=== PATIENT | female | born 1975 | race Caucasian/White ===

== ENCOUNTER 2019-03-19 05:49 | Observation (INO) | payer SELFPAY ==
[2019-03-19] MEDS ORDERED: Sodium Chloride 0.9% 2.5 ML Syringe FLUSH PRN (05:53)
[2019-03-19] MEDS ORDERED: Sodium Chloride 0.9% 10 ML Syringe FLUSH PRN (05:53)
[2019-03-19] MEDS ORDERED: Sodium Chloride 0.9% 1,000 ML IV ONE ×2 (05:58→07:50)
--- NOTE | 2019-03-19 06:02 | EDM.PDOC ---
ED HPI GENERAL MEDICAL PROBLEM - General Chief Complaint: Cardiovascular Problem Stated Complaint: PT HEART IS RACING Time Seen by Provider: 03/19/19 05:53 - History of Present Illness INITIAL COMMENTS - FREE TEXT/NARRATIVE: HISTORY AND PHYSICAL: History of present illness: The patient is a 43-year-old female who presents with onset of palpitations and tachycardia that occurred while she was at work and feeling lightheaded like she might pass out. She works at [employer] and she says that the staff took her pulse and it was 120s and her blood pressure was 150/ 80. Patient said she had a normal day yesterday and slept fine and got up and get ready for work and went into work when the symptoms started. She had no recent illness such as fever chills chest pain or shortness of breath no URI symptoms no abdominal pain nausea vomiting or diarrhea. The patient denies and has a history of a thyroid nodule as well as hypothyroidism in the past. Currently in the ED she says that her heart is not racing she's not having any pain as long as she is laying flat but when she gets up and moves around she feels like her heart increases in rate and she feels lightheaded. She did not pass out today and has no head neck or back pain and she never had any chest pain or shortness of breath with this. She has no focal weakness numbness or tingling changes in her extremities. The patient tells me she was going to schedule an appointment with her clinic provider for several months of changes in her hair and hair loss as well as some weight loss and overall generalized fatigue and she thought this might be her thyroid. Review of systems: As per history of present illness and below otherwise all systems reviewed and negative. Past medical history: As per history of present illness and as reviewed below otherwise noncontributory. Surgical history: As per history of present illness and as reviewed below otherwise noncontributory. Social history: No reported history of drug or alcohol abuse. Family history: As per history of present illness and as reviewed below otherwise noncontributory. Physical exam: General: Well-developed well-nourished female who is nontoxic and vital signs are noted by me. My evaluation her heart rate is in the 80s. HEENT: Atraumatic, normocephalic, pupils reactive, negative for conjunctival pallor or scleral icterus, mucous membranes moist, throat clear, neck supple, nontender, trachea midline. Dramatically or cervical adenopathy Lungs: Clear to auscultation, breath sounds equal bilaterally, chest nontender. Heart: S1S2, regular, rate and rhythm no overt murmurs negative for clicks, rubs , or JVD. Abdomen: Soft, nondistended, nontender. Negative for masses or hepatosplenomegaly. Negative for costovertebral tenderness. Pelvis: Stable nontender. Genitourinary: Deferred. Rectal: Deferred. Extremities: Atraumatic, negative for cords or calf pain. Neurovascular unremarkable. No pedal edema or leg asymmetry Neuro: Awake, alert, oriented. Cranial nerves II through XII unremarkable. Cerebellum unremarkable. Motor and sensory unremarkable throughout. Exam nonfocal. Diagnostics: EKG chest x-ray CBC CMP troponin TSH orthostatic vitals UCG UA with reflex Therapeutics: IV O2 monitor IV fluids potassium po and IV piggyback I discussed with the patient how she is feeling as we are currently waiting the remainder of her testing results. She says she still feels lightheaded and that if she gets up she feels like she's going to pass out. She is aware of her elevated blood pressure and says that she has not had a check for the last one year. She is aware that it is unclear if this is a new or chronic change and she is also aware of her potassium of 2.6. She has expressed that she feels uncomfortable with going home and that her symptoms are not significantly improving. I will discuss this case with Dr. Toney [id number]: Case was discussed with Dr. Toney who was aware of the potassium supplementation and will address her blood pressure when he evaluates her this morning. The patient is agreeable for admission and he has agreed to admit her as well. Impression: Palpitations with lightheadedness/near syncopal, new hypertension, hypokalemia Definitive disposition and diagnosis as appropriate pending reevaluation and review of above. chest Pain Score (Numeric/FACES): 6 - Related Data Allergies Allergy/AdvReac Type Severity Reaction Status Date / Time oxycodone Allergy Swelling Verified 03/19/19 06:01 Home Meds: Home Meds . [No Known Home Meds] 03/19/19 [History] ED ROS GENERAL - Review of Systems Review Of Systems: ROS reveals no pertinent complaints other than HPI. ED EXAM, GENERAL - Physical Exam Exam: See Below (See dictation) Course - Vital Signs Last Recorded V/S: Last Vital Signs Temp 36.2 C 03/19/19 05:49 Pulse 71 03/19/19 06:34 Resp 18 03/19/19 06:34 BP 162/105 H 03/19/19 06:34 Pulse Ox 95 03/19/19 06:34 Orthostatic Blood Pressure [ 155/114 Standing] Orthostatic Blood Pressure [ 173/110 Sitting] Orthostatic Blood Pressure [ 163/104 Supine] - Orders/Labs/Meds Orders: Active Orders 24 hr Category Date Time Status Patient Status [ADT] Stat ADT 03/19/19 06:57 Ordered Cardiac Monitoring [RC] . DIRECTED Care 03/19/19 05:54 Active EKG Documentation Completion [RC] STAT Care 03/19/19 05:54 Active Orthostatic Vital Signs [RC] ASDIRECTED Care 03/19/19 05:58 Active Oxygen Therapy, ED [RC] ASDIRECTED Care 03/19/19 05:53 Active Pulse Oximetry [RC] ASDIRECTED Care 03/19/19 05:54 Active Potassium Chloride Riders [KCL 20 MEQ in Water 50 ML] Med 03/19/19 06:40 Active 20 meq Premix Bag 1 bag IV ONETIME Sodium Chloride 0.9% [Saline Flush] Med 03/19/19 05:53 Active 10 ml FLUSH ASDIRECTED PRN Sodium Chloride 0.9% [Saline Flush] Med 03/19/19 05:53 Active 2.5 ml FLUSH ASDIRECTED PRN Saline Lock Insert [OM.PC] Stat Oth 03/19/19 05:53 Ordered Medication Orders Potassium Chloride 20 meq/ (Premix) 50 mls @ 25 mls/hr IV ONETIME ONE Stop: 03/19/19 08:39 Last Admin: 03/19/19 06:53 Dose: 25 mls/hr Sodium Chloride (Saline Flush) 10 ml FLUSH ASDIRECTED PRN PRN Reason: Keep Vein Open Sodium Chloride (Saline Flush) 2.5 ml FLUSH ASDIRECTED PRN PRN Reason: Keep Vein Open Labs: Laboratory Tests 03/19/19 03/19/19 03/19/19 Range/Units 05:55 05:55 05:55 WBC 8.09 (4.0-11.0) K/uL RBC 4.78 (4.30-5.90) M/uL Hgb 11.4 L (12.0-16.0) g/dL Hct 37.9 (36.0-46.0) % MCV 79.3 L (80.0-98.0) fL MCH 23.8 L (27.0-32.0) pg MCHC 30.1 L (31.0-37.0) g/dL RDW Std Deviation 49.9 (28.0-62.0) fl RDW Coeff of Jania 17 H (11.0-15.0) % Plt Count 445 H (150-400) K/uL MPV 9.10 (7.40-12.00) fL Neut % (Auto) 47.3 L (48.0-80.0) % Lymph % (Auto) 36.0 (16.0-40.0) % [place] % (Auto) 12.7 (0.0-15.0) % Eos % (Auto) 3.1 (0.0-7.0) % Baso % (Auto) 0.9 (0.0-1.5) % Neut # (Auto) 3.8 (1.4-5.7) K/uL Lymph # (Auto) 2.9 H (0.6-2.4) K/uL [place] # (Auto) 1.0 H (0.0-0.8) K/uL Eos # (Auto) 0.3 (0.0-0.7) K/uL Baso # (Auto) 0.1 (0.0-0.1) K/uL Nucleated RBC % 0.0 /100WBC Nucleated RBCs # 0 K/uL Sodium 141 (136-145) mmol/L Potassium 2.6 L (3.5-5.1) mmol/L Chloride 103 (98-107) mmol/L Carbon Dioxide 25.4 (21.0-32.0) mmol/L BUN 14 (7.0-18.0) mg/dL Creatinine 1.3 H (0.6-1.0) mg/dL Est Cr Clr Drug Dosing 51.70 mL/min Estimated GFR (MDRD) 44.5 ml/min Glucose 100 (74-106) mg/dL Calcium 8.5 (8.5-10.1) mg/dL Magnesium 2.1 (1.8-2.4) mg/dL Total Bilirubin 0.2 (0.2-1.0) mg/dL AST 22 (15-37) IU/L ALT 25 (14-63) IU/L Alkaline Phosphatase 54 (46-116) U/L Troponin I < 0.050 (0.000-0.056) ng/mL Total Protein 7.5 (6.4-8.2) g/dL Albumin 3.6 (3.4-5.0) g/dL Globulin 3.9 (2.6-4.0) g/dL Albumin/Globulin Ratio 0.9 (0.9-1.6) TSH 3rd Generation 3.31 (0.36-3.74) uIU/mL Urine Color Urine Appearance Urine pH (5.0-8.0) Ur Specific [place] (1.001-1.035) Urine Protein (NEGATIVE) mg/dL Urine Glucose (UA) (NEGATIVE) mg/dL Urine Ketones (NEGATIVE) mg/dL Urine Occult Blood (NEGATIVE) Urine Nitrite (NEGATIVE) Urine Bilirubin (NEGATIVE) Urine Urobilinogen (<2.0) EU/dL Ur Leukocyte Esterase (NEGATIVE) Urine HCG, Qual (NEGATIVE) 03/19/19 03/19/19 Range/Units 06:25 06:25 WBC (4.0-11.0) K/uL RBC (4.30-5.90) M/uL Hgb (12.0-16.0) g/dL Hct (36.0-46.0) % MCV (80.0-98.0) fL MCH (27.0-32.0) pg MCHC (31.0-37.0) g/dL RDW Std Deviation (28.0-62.0) fl RDW Coeff of Jania (11.0-15.0) % Plt Count (150-400) K/uL MPV (7.40-12.00) fL Neut % (Auto) (48.0-80.0) % Lymph % (Auto) (16.0-40.0) % [place] % (Auto) (0.0-15.0) % Eos % (Auto) (0.0-7.0) % Baso % (Auto) (0.0-1.5) % Neut # (Auto) (1.4-5.7) K/uL Lymph # (Auto) (0.6-2.4) K/uL [place] # (Auto) (0.0-0.8) K/uL Eos # (Auto) (0.0-0.7) K/uL Baso # (Auto) (0.0-0.1) K/uL Nucleated RBC % /100WBC Nucleated RBCs # K/uL Sodium (136-145) mmol/L Potassium (3.5-5.1) mmol/L Chloride (98-107) mmol/L Carbon Dioxide (21.0-32.0) mmol/L BUN (7.0-18.0) mg/dL Creatinine (0.6-1.0) mg/dL Est Cr Clr Drug Dosing mL/min Estimated GFR (MDRD) ml/min Glucose (74-106) mg/dL Calcium (8.5-10.1) mg/dL Magnesium (1.8-2.4) mg/dL Total Bilirubin (0.2-1.0) mg/dL AST (15-37) IU/L ALT (14-63) IU/L Alkaline Phosphatase (46-116) U/L Troponin I (0.000-0.056) ng/mL Total Protein (6.4-8.2) g/dL Albumin (3.4-5.0) g/dL Globulin (2.6-4.0) g/dL Albumin/Globulin Ratio (0.9-1.6) TSH 3rd Generation (0.36-3.74) uIU/mL Urine Color YELLOW Urine Appearance CLEAR Urine pH 6.0 (5.0-8.0) Ur Specific [place] <= 1.005 (1.001-1.035) Urine Protein NEGATIVE (NEGATIVE) mg/dL Urine Glucose (UA) NEGATIVE (NEGATIVE) mg/dL Urine Ketones NEGATIVE (NEGATIVE) mg/dL Urine Occult Blood NEGATIVE (NEGATIVE) Urine Nitrite NEGATIVE (NEGATIVE) Urine Bilirubin NEGATIVE (NEGATIVE) Urine Urobilinogen 0.2 (<2.0) EU/dL Ur Leukocyte Esterase NEGATIVE (NEGATIVE) Urine HCG, Qual NEGATIVE (NEGATIVE) Meds: Medications Generic Name Dose Route Start Last Admin Trade Name Freq PRN Reason Stop Dose Admin Potassium Chloride 20 meq/ 50 mls @ 25 mls/hr 03/19/19 06:40 03/19/19 06:53 Premix IV 03/19/19 08:39 25 mls/hr ONETIME ONE Administration Sodium Chloride 10 ml 03/19/19 05:53 Saline Flush FLUSH ASDIRECTED PRN Keep Vein Open Sodium Chloride 2.5 ml 03/19/19 05:53 Saline Flush FLUSH ASDIRECTED PRN Keep Vein Open Discontinued Medications Generic Name Dose Route Start Last Admin Trade Name Durga PRN Reason Stop Dose Admin Sodium Chloride 1,000 mls @ 999 mls/hr 03/19/19 05:58 03/19/19 06:29 Normal Saline IV 03/19/19 06:58 999 mls/hr STAT ONE Administration Potassium Chloride 40 meq 03/19/19 06:37 03/19/19 06:44 Klor-Con M20 PO 03/19/19 06:38 40 meq ONETIME ONE Administration Departure - Departure Time of Disposition: 06:58 Disposition: Refer to Observation Condition: Good Clinical Impression: Palpitations, Lightheadedness Hypertension Qualifiers: Hypertension type: unspecified Qualified Code(s): I10 - Essential (primary) hypertension Referrals: PCP,None [Primary Care Provider] - Forms: ED Department Discharge Additional Instructions: The following information is given to patients seen in the emergency department who are being discharged to home. This information is to outline your options for follow-up care. We provide all patients seen in our emergency department with a follow-up referral. The need for follow-up, as well as the timing and circumstances, are variable depending upon the specifics of your emergency department visit. If you don't have a primary care physician on staff, we will provide you with a referral. We always advise you to contact your personal physician following an emergency department visit to inform them of the circumstance of the visit and for follow-up with them and/or the need for any referrals to a consulting specialist. The emergency department will also refer you to a specialist when appropriate. This referral assures that you have the opportunity for followup care with a specialist. All of these measure are taken in an effort to provide you with optimal care, which includes your followup. Under all circumstances we always encourage you to contact your private physician who remains a resource for coordinating your care. When calling for followup care, please make the office aware that this follow-up is from your recent emergency room visit. If for any reason you are refused follow-up, please contact the [facility] emergency department at and ask to speak to the emergency department charge nurse. [facility]- Internal Medicine and Family [address] [address] Push hydration and reduce caffeinated products. Please call and schedule a follow-up appointment in our clinic for further care and evaluation and return to ER as needed and as discussed all position changing more slowly so as to avoid lightheadedness - My Orders Last 24 Hours: My Active Orders 03/19/19 05:53 Oxygen Therapy, ED [RC] ASDIRECTED Sodium Chloride 0.9% [Saline Flush] 10 ml FLUSH ASDIRECTED PRN Sodium Chloride 0.9% [Saline Flush] 2.5 ml FLUSH ASDIRECTED PRN Saline Lock Insert [OM.PC] Stat 03/19/19 05:54 Cardiac Monitoring [RC] . DIRECTED EKG Documentation Completion [RC] STAT Pulse Oximetry [RC] ASDIRECTED 03/19/19 05:58 Orthostatic Vital Signs [RC] ASDIRECTED 03/19/19 06:40 Potassium Chloride Riders [KCL 20 MEQ in Water 50 ML] 20 meq Premix Bag 1 bag IV ONETIME 03/19/19 06:57 Patient Status [ADT] Stat - Assessment/Plan Last 24 Hours: My Active Orders 03/19/19 05:53 Oxygen Therapy, ED [RC] ASDIRECTED Sodium Chloride 0.9% [Saline Flush] 10 ml FLUSH ASDIRECTED PRN Sodium Chloride 0.9% [Saline Flush] 2.5 ml FLUSH ASDIRECTED PRN Saline Lock Insert [OM.PC] Stat 03/19/19 05:54 Cardiac Monitoring [RC] . DIRECTED EKG Documentation Completion [RC] STAT Pulse Oximetry [RC] ASDIRECTED 03/19/19 05:58 Orthostatic Vital Signs [RC] ASDIRECTED 03/19/19 06:40 Potassium Chloride Riders [KCL 20 MEQ in Water 50 ML] 20 meq Premix Bag 1 bag IV ONETIME 03/19/19 06:57 Patient Status [ADT] Stat
[2019-03-19 06:33] LABS: CHLORIDE,CL 103 mmol/L (98-107); SODIUM,NA 141 mmol/L (136-145)
[2019-03-19] MEDS ORDERED: Potassium Chloride 20 MEQ Tab.ER PO ONE (06:37)
[2019-03-19] MEDS ORDERED: Potassium Chloride Riders 20 MEQ in Premix Bag 1 BAG IV ONE (06:40)
--- NOTE | 2019-03-19 06:43 | CR ---
HISTORY: Chest pain. Shortness of breath. TECHNIQUE: Frontal view the chest. COMPARISON: None. FINDINGS: Low lung volumes. No airspace consolidation. No pleural effusion or pneumothorax. Pulmonary vasculature and cardiomediastinal silhouette are within normal limits. IMPRESSION: No acute abnormality. Dictated by Matt Leroy MD @ Mar 19 2019 6:41AM Signed by Dr. Matt Leroy @ Mar 19 2019 6:42AM
[2019-03-19] MEDS ORDERED: Ondansetron 4 MG Tab.DIS PO PRN (08:05)
[2019-03-19] MEDS ORDERED: Acetaminophen 325 MG Tab PO PRN (08:05)
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
[2019-03-19 08:43] LABS: HEMOGLOBIN A1C 5.7 % (4.5-6.2)
[2019-03-19] MEDS: Lisinopril 10 MG Tab PO SCH (09:03)
--- NOTE | 2019-03-20 08:49 | PCM.DCSUM1 ---
Discharge Summary - Hospital Course Brief History: This 43 year old female with pmh of gastric bypass, sarcoidosis of the liver, hx surgical splenectomy presented to the ED this morning with complaints of palpitations, high blood pressure and not feeling well. 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 The blood pressure was elevated as well as the heart rate, which was 120. She started having some chest pain this morning getting ready for work. This pain was mid sternal and felt like her heart was pounding out of her chest. No shortness of breath or nausea. No radiation of the pain. She reports some activity makes it worse and at rest it is better. She reports she has not been feeling well for awhile and was planning on arranging doctor visit due to hair falling out and changes to her hair as well as generalized fatigue. She denies URI symptoms, no abdominal pain nausea or vomiting. No diarrhea and no diuretic use. She reports no other concerns. She denies history of DM but suffers from hypoglycemia secondary to weight loss surgery. She reports vaping and plans to stop. No alcohol or recreational drug use. She reports she has not been taking her Multivitamin like she should s/p gastric bypass. In the ED, no leukocytosis noted, hgb 11.4 , plt 445, K+2.6 Mg 2.1. BUN 12, Cr 1.3. TSH 3.31, troponin negative. EKG SR with no ST segment changes. Ua negative. BP on arrival was elevated 190/130, without medications this decreased to 160/90s. She reports history of high BPs, but never this high. She was treated with 40 MEQ KCL as well as 20 MEQ PO. She will be admitted observation for palpitations, HTN, and hypokalemia. Diagnosis: Stroke: No - Discharge Data Discharge Date: 03/20/19 Discharge Disposition: Home, Self-Care 01 Condition: Good - Discharge Diagnosis/Problem(s) (1) Chest pain SNOMED Code(s): 20952295 ICD Code: R07.9 - CHEST PAIN, UNSPECIFIED Status: Acute Current Visit: Yes (2) Hypokalemia SNOMED Code(s): 82329776 ICD Code: E87.6 - HYPOKALEMIA Status: Acute Current Visit: Yes (3) Hypertension SNOMED Code(s): 20499743 ICD Code: I10 - ESSENTIAL (PRIMARY) HYPERTENSION Status: Chronic Current Visit: Yes Qualifiers: Hypertension type: essential hypertension Qualified Code(s): I10 - Essential (primary) hypertension (4) Lightheadedness SNOMED Code(s): 304637736 ICD Code: R42 - DIZZINESS AND GIDDINESS Status: Chronic Current Visit: No (5) Palpitations SNOMED Code(s): 70462014 ICD Code: R00.2 - PALPITATIONS Status: Chronic Current Visit: No - Patient Instructions Diet: Heart Healthy Diet Activity: No Strenuous Activities Driving: Do Not Drive Showering/Bathing: May Shower Notify Provider of: Fever, Increased Pain, Swelling and Redness, Drainage, Nausea and/or Vomiting Other/Special Instructions: Plan for event monitor when respiratory care can place. - Discharge Plan *PRESCRIPTION DRUG MONITORING PROGRAM REVIEWED*: Not Applicable *COPY OF PRESCRIPTION DRUG MONITORING REPORT IN PATIENT CAROL: Not Applicable Prescriptions/Med Rec: Lisinopril [Prinivil] 10 mg PO DAILY #30 tablet Home Medications: Home Meds Lisinopril [Prinivil] 10 mg PO DAILY #30 tablet 03/20/19 [Rx] Oxygen Therapy Mode: Room Air Patient Handouts: Nonspecific Chest Pain, [id number], Lisinopril tablets Referrals: Leif Medina MD [Physician] - 04/04/19 9:30 am (Arrive 30 minutes early with insurance card and photo ID.) - Discharge Summary/Plan Comment DC Time >30 min.: No Discharge Summary/Plan Comment: Admitting Diagnoses: Hypertension Hypokalemia Palpitations Chest pain Discharge Diagnoses: Hypertension Other PMH: Hx gastric bypass Anxiety Mary was admitted and monitored for hypertension and chest pain. Troponins trended and returned all negative. Telemetry SR to SB no arrhythmias or ectopy. She was supplemented with Potassium and started on Lisinopril 10 mg. BP responded well and this morning 120/80s. She will be continued on Lisinopril, this morning potassium 4.2. Due to extreme hypertension and hypokalemia coming in, aldosterone and renin labwork were obtained to rule out hyperaldosteronism. She does have history of sarcoidosis of liver and had history of splenectomy due to this as well. These labs are send outs and are not available at discharge. She will follow up with PCP, Dr Medina with these labs. She will also be placed on a ZIO patch due to history of palpitations, this will be in place for 2 weeks with results to go to Dr Medina as well. She is feeling better today and eager for discharge today. She is to return to ED or clinic if concerns should arise. - General Info Date of Service: 03/20/19 Admission Dx/Problem (Free Text: Admission Diagnosis/Problem Admission Diagnosis/Problem Lightheadedness Subjective Update: No complaints this morning, she is feeling better. No chest pain. No palpitations. eager to go home today Functional Status: Reports: Pain Controlled, Tolerating Diet, Ambulating, Urinating - Review of Systems General: Reports: No Symptoms. Denies: Weakness, Fatigue HEENT: Reports: No Symptoms. Denies: Headaches, Sore Throat, Visual Changes Pulmonary: Reports: No Symptoms. Denies: Shortness of Breath Cardiovascular: Reports: No Symptoms. Denies: Chest Pain Gastrointestinal: Reports: No Symptoms. Denies: Abdominal Pain, Nausea, Vomiting Genitourinary: Reports: No Symptoms. Denies: Dysuria, Frequency, Burning Musculoskeletal: Reports: No Symptoms Skin: Reports: No Symptoms Neurological: Reports: No Symptoms Psychiatric: Reports: No Symptoms - Patient Data Vitals - Most Recent: Last Vital Signs Temp 97.4 F 03/20/19 03:40 Pulse 61 03/20/19 03:40 Resp 17 03/20/19 03:40 BP 132/65 03/20/19 03:40 Pulse Ox 97 03/20/19 03:40 Orthostatic Blood Pressure [ 155/114 Standing] Orthostatic Blood Pressure [ 173/110 Sitting] Orthostatic Blood Pressure [ 163/104 Supine] Weight - Most Recent: 77 kg I&O - Last 24 hours: Intake & Output 03/19/19 03/20/19 03/20/19 22:59 06:59 14:59 Intake Total 1190 520 Output Total 1350 850 Balance -160 -330 Lab Results - Last 24 hrs: Laboratory Results - last 24 hr 03/19/19 03/19/19 03/20/19 Range/Units 11:45 17:56 05:24 Sodium 141 (136-145) mmol/L Potassium 3.7 4.2 (3.5-5.1) mmol/L Chloride 108 H (98-107) mmol/L Carbon Dioxide 24.6 (21.0-32.0) mmol/L BUN 17 (7.0-18.0) mg/dL Creatinine 1.1 H (0.6-1.0) mg/dL Est Cr Clr Drug Dosing 61.10 mL/min Estimated GFR (MDRD) 54.0 ml/min Glucose 93 (74-106) mg/dL Calcium 8.3 L (8.5-10.1) mg/dL Troponin I < 0.050 < 0.050 (0.000-0.056) ng/mL Med Orders - Current: Current Medications Acetaminophen (Tylenol) 650 mg PO Q4H PRN PRN Reason: Pain (mild 1-3) Last Admin: 03/19/19 11:30 Dose: 650 mg Lisinopril (Prinivil) 10 mg PO DAILY GAURAV Last Admin: 03/19/19 09:03 Dose: 10 mg Ondansetron HCl (Zofran Odt) 4 mg PO Q4H PRN PRN Reason: nausea, able to take PO Sodium Chloride (Saline Flush) 10 ml FLUSH ASDIRECTED PRN PRN Reason: Keep Vein Open Sodium Chloride (Saline Flush) 2.5 ml FLUSH ASDIRECTED PRN PRN Reason: Keep Vein Open Discontinued Medications Sodium Chloride (Normal Saline) 1,000 mls @ 999 mls/hr IV STAT ONE Stop: 03/19/19 06:58 Last Admin: 03/19/19 06:29 Dose: 999 mls/hr Potassium Chloride 20 meq/ (Premix) 50 mls @ 25 mls/hr IV ONETIME ONE Stop: 03/19/19 08:39 Last Admin: 03/19/19 06:53 Dose: 25 mls/hr Sodium Chloride (Normal Saline) 1,000 mls @ 999 mls/hr IV .Bolus ONE Stop: 03/19/19 08:50 Last Admin: 03/19/19 07:52 Dose: 125 mls/hr Potassium Chloride (Klor-Con M20) 40 meq PO ONETIME ONE Stop: 03/19/19 06:38 Last Admin: 03/19/19 06:44 Dose: 40 meq - Exam General: Reports: Alert, Oriented, Cooperative Lungs: Reports: Clear to Auscultation, Normal Respiratory Effort Cardiovascular: Reports: Regular Rate, Regular Rhythm GI/Abdominal Exam: Normal Bowel Sounds, Soft, Non-Tender, Hepatomegaly Extremities: Normal Inspection, Normal Range of Motion, Non-Tender Neurological: Reports: No New Focal Deficit Psy/Mental Status: Reports: Alert, Normal Affect, Normal Mood
[2019-03-20] MEDS: Lisinopril 10 MG Tab PO SCH (09:01)
== END 2019-03-20 11:20 | disposition home or self-care (01) ==
LOC: MW.ED 05:49 → MW.MS 06:57
PROVIDERS: ADMIT Internal Medicine; ATTEND Internal Medicine
DX: I10 Essential (primary) hypertension (principal); E87.6 Hypokalemia; R00.2 Palpitations; R07.9 Chest pain, unspecified; F17.290 Nicotine dependence, other tobacco product, uncomplicated; Z88.5 Allergy status to narcotic agent
CPT/HCPCS: 0296T; 36415; 71045; 80048; 80053; 80061; 81003; 81025; 82088; 83036; 83735; 84132; 84244; 84443; 84484; 85025; 93005; 96365; 99285; A4217; A9270; G0378; J3480; J7040

== ENCOUNTER 2019-08-25 05:41 | Emergency (ER) | payer BC ==
[2019-08-25] MEDS ORDERED: Sodium Chloride 0.9% 1,000 ML IV ONE (05:55)
[2019-08-25 06:24] LABS: BLOOD UREA NITROGEN,BUN 20 mg/dL (7.0-18.0); CARBON DIOXIDE,CO2 24.1 mmol/L (21.0-32.0); CHLORIDE,CL 103 mmol/L (98-107); GLUCOSE RANDOM 76 mg/dL (74-106); POTASSIUM,K 3.8 mmol/L (3.5-5.1); SODIUM,NA 137 mmol/L (136-145)
--- NOTE | 2019-08-25 06:38 | CR ---
INDICATION: Dizziness TECHNIQUE: Chest radiograph 1 view COMPARISON: 03/19/19 FINDINGS: Moderate degradation of image quality noted due to quantum mottle. Mediastinum: The mediastinum is normal in appearance. The heart silhouette is normal in size and morphology. Lung: Both lungs are unremarkable in appearance. No sign of pleural effusion seen. No pneumothorax is identified. Bone and Soft tissue: Unremarkable for age. IMPRESSION: 1. No acute cardiopulmonary disease is seen. Dictated by: Deniz Casiano MD @ 08/25/2019 06:37:04 (Electronically Signed)
--- NOTE | 2019-08-25 06:40 | CT ---
INDICATION: Dizziness TECHNIQUE: CT Head without i.v. contrast. COMPARISON: None FINDINGS: CSF space: The ventricles are normal for age. Brain: No evidence of mass, acute infarction or hemorrhage is seen. No mass-effect or midline shift is seen. The brain parenchyma is otherwise normal in appearance with preservation of the najera-white matter junction. Calvarium: The visualized paranasal sinuses are well aerated. The mastoid air cells are clear. The visualized orbits are grossly unremarkable. The calvarium is unremarkable in appearance with no fractures identified. Left lateral suboccipital craniectomy and cranioplasty noted. IMPRESSION: 1. No evidence of acute infarction, intracranial hemorrhage, or mass-effect seen. Please note that all CT scans at this facility use dose modulation, iterative reconstruction, and/or weight-based dosing when appropriate to reduce radiation dose to as low as reasonably achievable. Dictated by: Deniz Casiano MD @ 08/25/2019 06:38:54 (Electronically Signed)
--- NOTE | 2019-08-25 06:58 | EDM.PDOC ---
ED HPI GENERAL MEDICAL PROBLEM - General Chief Complaint: General Stated Complaint: DIZZINESS AND HBP Time Seen by Provider: 08/25/19 06:57 - History of Present Illness INITIAL COMMENTS - FREE TEXT/NARRATIVE: HISTORY AND PHYSICAL: History of present illness: Patient's a 44-year-old white female presents with a concern of dizziness she was seen for this prior and as an outpatient and did have a Holter monitor placed but she has not received results to date no chest pain nausea vomiting or other complaints. Review of systems: As per history of present illness and below otherwise all systems reviewed and negative. Past medical history: As per history of present illness and as reviewed below otherwise noncontributory. Surgical history: As per history of present illness and as reviewed below otherwise noncontributory. Social history: No reported history of drug or alcohol abuse. Family history: As per history of present illness and as reviewed below otherwise noncontributory. Physical exam: HEENT: Atraumatic, normocephalic, pupils reactive, negative for conjunctival pallor or scleral icterus, mucous membranes moist, throat clear, neck supple, nontender, trachea midline. Lungs: Clear to auscultation, breath sounds equal bilaterally, chest nontender. Heart: S1S2, regular, negative for clicks, rubs, or JVD. Abdomen: Soft, nondistended, nontender. Negative for masses or hepatosplenomegaly. Negative for costovertebral tenderness. Pelvis: Stable nontender. Genitourinary: Deferred. Rectal: Deferred. Extremities: Atraumatic, negative for cords or calf pain. Neurovascular unremarkable. Neuro: Awake, alert, oriented. Cranial nerves II through XII unremarkable. Cerebellum unremarkable. Motor and sensory unremarkable throughout. Exam nonfocal. 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 Neurological History: Reports: None Other Neuro History: Hx Brain tumor Psychiatric History: Reports: Anxiety, Depression, Panic Attack Hematologic History: Reports: None - Past Surgical History GI Surgical History: Reports: Appendectomy, Cholecystectomy, Other (See Below) Female Surgical History: Reports: Section Social & Family History - Family History Family Medical History: Noncontributory - Tobacco Use Smoking Status *Q: Never Smoker - Caffeine Use Caffeine Use: Reports: Coffee - Recreational Drug Use Recreational Drug Use: No - Living Situation & Occupation 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 ED EXAM, GENERAL - Physical Exam Exam: See Below (See dictation) Course - Vital Signs Last Recorded V/S: Last Vital Signs Temp 36.1 C 08/25/19 05:41 Pulse 55 L 08/25/19 06:52 Resp 16 08/25/19 06:52 BP 112/57 L 08/25/19 06:52 Pulse Ox 99 08/25/19 06:52 Orthostatic Blood Pressure [ 92/60 Standing] Orthostatic Blood Pressure [ 103/71 Sitting] Orthostatic Blood Pressure [ 111/60 Supine] - Orders/Labs/Meds Orders: Active Orders 24 hr Category Date Time Status EKG Documentation Completion [RC] STAT Care 08/25/19 05:55 Active Orthostatic Vital Signs [RC] ASDIRECTED Care 08/25/19 06:20 Active Sodium Chloride 0.9% [Normal Saline] 1,000 ml Med 08/25/19 05:55 Active IV BOLUS Saline Lock Insert [OM.PC] Stat Oth 08/25/19 05:55 Ordered Medication Orders Sodium Chloride (Normal Saline) 1,000 mls @ 999 mls/hr IV BOLUS ONE Stop: 08/25/19 06:55 Last Admin: 08/25/19 06:08 Dose: 999 mls/hr Labs: Laboratory Tests 08/25/19 08/25/19 08/25/19 Range/Units 05:45 05:45 05:45 WBC 9.83 (4.0-11.0) K/uL RBC 4.62 (4.30-5.90) M/uL Hgb 10.9 L (12.0-16.0) g/dL Hct 36.6 (36.0-46.0) % MCV 79.2 L (80.0-98.0) fL MCH 23.6 L (27.0-32.0) pg MCHC 29.8 L (31.0-37.0) g/dL RDW Std Deviation 44.9 (28.0-62.0) fl RDW Coeff of Jania 16 H (11.0-15.0) % Plt Count 453 H (150-400) K/uL MPV 9.10 (7.40-12.00) fL Neut % (Auto) 46.1 L (48.0-80.0) % Lymph % (Auto) 40.0 (16.0-40.0) % [place] % (Auto) 10.7 (0.0-15.0) % Eos % (Auto) 2.5 (0.0-7.0) % Baso % (Auto) 0.7 (0.0-1.5) % Neut # (Auto) 4.5 (1.4-5.7) K/uL Lymph # (Auto) 3.9 H (0.6-2.4) K/uL [place] # (Auto) 1.1 H (0.0-0.8) K/uL Eos # (Auto) 0.3 (0.0-0.7) K/uL Baso # (Auto) 0.1 (0.0-0.1) K/uL Nucleated RBC % 0.0 /100WBC Nucleated RBCs # 0 K/uL INR 0.94 Sodium 137 (136-145) mmol/L Potassium 3.8 (3.5-5.1) mmol/L Chloride 103 (98-107) mmol/L Carbon Dioxide 24.1 (21.0-32.0) mmol/L BUN 20 H (7.0-18.0) mg/dL Creatinine 1.4 H (0.6-1.0) mg/dL Est Cr Clr Drug Dosing 47.50 mL/min Estimated GFR (MDRD) 40.7 ml/min Glucose 76 (74-106) mg/dL Calcium 8.6 (8.5-10.1) mg/dL Total Bilirubin 0.2 (0.2-1.0) mg/dL AST 18 (15-37) IU/L ALT 20 (14-63) IU/L Alkaline Phosphatase 53 (46-116) U/L Troponin I < 0.050 (0.000-0.056) ng/mL Total Protein 7.3 (6.4-8.2) g/dL Albumin 3.2 L (3.4-5.0) g/dL Globulin 4.1 H (2.6-4.0) g/dL Albumin/Globulin Ratio 0.8 L (0.9-1.6) Urine Color Urine Appearance Urine pH (5.0-8.0) Ur Specific [place] (1.001-1.035) Urine Protein (NEGATIVE) mg/dL Urine Glucose (UA) (NEGATIVE) mg/dL Urine Ketones (NEGATIVE) mg/dL Urine Occult Blood (NEGATIVE) Urine Nitrite (NEGATIVE) Urine Bilirubin (NEGATIVE) Urine Ictotest Urine Urobilinogen (<2.0) EU/dL Ur Leukocyte Esterase (NEGATIVE) Urine HCG, Qual (NEGATIVE) 08/25/19 08/25/19 Range/Units 05:46 05:46 WBC (4.0-11.0) K/uL RBC (4.30-5.90) M/uL Hgb (12.0-16.0) g/dL Hct (36.0-46.0) % MCV (80.0-98.0) fL MCH (27.0-32.0) pg MCHC (31.0-37.0) g/dL RDW Std Deviation (28.0-62.0) fl RDW Coeff of Jania (11.0-15.0) % Plt Count (150-400) K/uL MPV (7.40-12.00) fL Neut % (Auto) (48.0-80.0) % Lymph % (Auto) (16.0-40.0) % [place] % (Auto) (0.0-15.0) % Eos % (Auto) (0.0-7.0) % Baso % (Auto) (0.0-1.5) % Neut # (Auto) (1.4-5.7) K/uL Lymph # (Auto) (0.6-2.4) K/uL [place] # (Auto) (0.0-0.8) K/uL Eos # (Auto) (0.0-0.7) K/uL Baso # (Auto) (0.0-0.1) K/uL Nucleated RBC % /100WBC Nucleated RBCs # K/uL INR Sodium (136-145) mmol/L Potassium (3.5-5.1) mmol/L Chloride (98-107) mmol/L Carbon Dioxide (21.0-32.0) mmol/L BUN (7.0-18.0) mg/dL Creatinine (0.6-1.0) mg/dL Est Cr Clr Drug Dosing mL/min Estimated GFR (MDRD) ml/min Glucose (74-106) mg/dL Calcium (8.5-10.1) mg/dL Total Bilirubin (0.2-1.0) mg/dL AST (15-37) IU/L ALT (14-63) IU/L Alkaline Phosphatase (46-116) U/L Troponin I (0.000-0.056) ng/mL Total Protein (6.4-8.2) g/dL Albumin (3.4-5.0) g/dL Globulin (2.6-4.0) g/dL Albumin/Globulin Ratio (0.9-1.6) Urine Color YELLOW Urine Appearance CLEAR Urine pH 6.0 (5.0-8.0) Ur Specific [place] 1.025 (1.001-1.035) Urine Protein NEGATIVE (NEGATIVE) mg/dL Urine Glucose (UA) NEGATIVE (NEGATIVE) mg/dL Urine Ketones TRACE H (NEGATIVE) mg/dL Urine Occult Blood NEGATIVE (NEGATIVE) Urine Nitrite NEGATIVE (NEGATIVE) Urine Bilirubin SMALL H (NEGATIVE) Urine Ictotest NEGATIVE Urine Urobilinogen 0.2 (<2.0) EU/dL Ur Leukocyte Esterase NEGATIVE (NEGATIVE) Urine HCG, Qual NEGATIVE (NEGATIVE) Meds: Medications Generic Name Dose Route Start Last Admin Trade Name Freq PRN Reason Stop Dose Admin Sodium Chloride 1,000 mls @ 999 mls/hr 08/25/19 05:55 08/25/19 06:08 Normal Saline IV 08/25/19 06:55 999 mls/hr BOLUS ONE Administration Departure - Departure Time of Disposition: 06:56 Disposition: Home, Self-Care 01 Condition: Good Clinical Impression: Dizziness - Discharge Information Referrals: PCP,None [Primary Care Provider] - Additional Instructions: The following information is given to patients seen in the emergency department who are being discharged to home. This information is to outline your options for follow-up care. We provide all patients seen in our emergency department with a follow-up referral. The need for follow-up, as well as the timing and circumstances, are variable depending upon the specifics of your emergency department visit. If you don't have a primary care physician on staff, we will provide you with a referral. We always advise you to contact your personal physician following an emergency department visit to inform them of the circumstance of the visit and for follow-up with them and/or the need for any referrals to a consulting specialist. The emergency department will also refer you to a specialist when appropriate. This referral assures that you have the opportunity for followup care with a specialist. All of these measure are taken in an effort to provide you with optimal care, which includes your followup. Under all circumstances we always encourage you to contact your private physician who remains a resource for coordinating your care. When calling for followup care, please make the office aware that this follow-up is from your recent emergency room visit. If for any reason you are refused follow-up, please contact the [facility] emergency department at and asked to speak to the emergency department charge nurse. Follow-up primary medical doctor return as needed as discussed - My Orders Last 24 Hours: My Active Orders 08/25/19 05:55 EKG Documentation Completion [RC] STAT Sodium Chloride 0.9% [Normal Saline] 1,000 ml IV BOLUS Saline Lock Insert [OM.PC] Stat 08/25/19 06:20 Orthostatic Vital Signs [RC] ASDIRECTED - Assessment/Plan Last 24 Hours: My Active Orders 08/25/19 05:55 EKG Documentation Completion [RC] STAT Sodium Chloride 0.9% [Normal Saline] 1,000 ml IV BOLUS Saline Lock Insert [OM.PC] Stat 08/25/19 06:20 Orthostatic Vital Signs [RC] ASDIRECTED
== END 2019-08-25 07:11 | disposition home or self-care (01) ==
LOC: MW.ED 05:41
DX: R42 Dizziness and giddiness (principal); I10 Essential (primary) hypertension; Z88.5 Allergy status to narcotic agent; Z79.899 Other long term (current) drug therapy
CPT/HCPCS: 36415; 70450; 71045; 80053; 81003; 81025; 84484; 85025; 85610; 93005; 96360; 99284; J7040

== ENCOUNTER 2019-12-04 14:13 | Emergency (ER) | payer BC ==
--- NOTE | 2019-12-04 15:27 | EDM.PDOC ---
ED HPI GENERAL MEDICAL PROBLEM - General Chief Complaint: Fever Stated Complaint: FLU Time Seen by Provider: 12/04/19 15:24 Source of Information: Reports: Patient History Limitations: Reports: No Limitations - History of Present Illness INITIAL COMMENTS - FREE TEXT/NARRATIVE: HISTORY AND PHYSICAL: History of present illness: Patient is a 44-year-old female presents to the ED with complaint of flu-like symptoms x 3 days. Patient states she has had a cold for the past 4 weeks with cough and nasal congestion. She states over the past 3 days she has had fevers, chills, and body aches. She reports worsening cough. She denies nausea, vomiting , diarrhea, abdominal pain, chest pain, shortness of breath. Review of systems: As per history of present illness and below otherwise all systems reviewed and negative. Past medical history: As per history of present illness and as reviewed below otherwise noncontributory. Surgical history: As per history of present illness and as reviewed below otherwise noncontributory. Social history: No reported history of drug or alcohol abuse. Family history: As per history of present illness and as reviewed below otherwise noncontributory. Physical exam: General: Patient sitting comfortably in no acute distress and nontoxic appearing HEENT: Atraumatic, normocephalic, pupils reactive, negative for conjunctival pallor or scleral icterus, mucous membranes moist, throat clear, neck supple, nontender, trachea midline. No meningeal signs. Lungs: Clear to auscultation, breath sounds equal bilaterally, chest nontender. Heart: S1S2, regular, negative for clicks, rubs, or overt murmur. Abdomen: Soft, nondistended, nontender. Negative for masses or hepatosplenomegaly. Negative for costovertebral tenderness. No rigidity, rebound , guarding. Pelvis: Stable nontender. Genitourinary: Deferred. Rectal: Deferred. Extremities: Atraumatic, negative for cords or calf pain. Neurovascular unremarkable. Neuro: Awake, alert, oriented. Cranial nerves II through XII unremarkable. Cerebellum unremarkable. Motor and sensory unremarkable throughout. Exam nonfocal. Notes: Diagnostics: CXR, influenza Therapeutics: none Prescriptions: Azithromycin Ventolin inhaler Impression: Acute bronchitis Plan: Take medications as instructed Follow up with primary care provider Return to ED as needed as discussed Definitive disposition and diagnosis as appropriate pending reevaluation and review of above. Generalized Pain Score (Numeric/FACES): 7 - Related Data Allergies Allergy/AdvReac Type Severity Reaction Status Date / Time oxycodone Allergy Swelling Verified 12/04/19 14:22 Home Meds: Home Meds lisinopriL [Prinivil] 10 mg PO DAILY #30 tablet 03/20/19 [Rx] Albuterol [Ventolin HFA] 1 puff INH Q4H #1 inhaler 12/04/19 [Rx] Azithromycin [Zithromax] 250 mg PO ASDIRECTED #1 dosepk 12/04/19 [Rx] Past Medical History HEENT History: Reports: Impaired Vision, Other (See Below) Other HEENT History: wears glasses Cardiovascular History: Reports: Hypertension Respiratory History: Reports: None Gastrointestinal History: Reports: Other (See Below) Other Gastrointestinal History: sarcoidosis of liver, 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 Neurological History: Reports: None Other Neuro History: Hx Brain tumor Psychiatric History: Reports: Anxiety, Depression, Panic Attack Hematologic History: Reports: None - Infectious Disease History Infectious Disease History: Reports: None - Past Surgical History GI Surgical History: Reports: Appendectomy, Cholecystectomy, Other (See Below) Female Surgical History: Reports: Section Social & Family History - Family History Family Medical History: Noncontributory - Caffeine Use Caffeine Use: Reports: Coffee - Recreational Drug Use Recreational Drug Use: No - Living Situation & Occupation 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 ED EXAM, ENT - Physical Exam Exam: See Below (see dictation) Course - Vital Signs Last Recorded V/S: Last Vital Signs Temp 98.0 F 12/04/19 14:22 Pulse 75 12/04/19 14:22 Resp 17 12/04/19 14:22 BP 187/100 H 12/04/19 14:22 Pulse Ox 99 12/04/19 14:22 - Orders/Labs/Meds Orders: Active Orders 24 hr Category Date Time Status Chest 2V [CR] Stat Exams 12/04/19 15:06 Ordered Departure - Departure Time of Disposition: 16:25 Disposition: Home, Self-Care 01 Condition: Good Clinical Impression: Acute bronchitis - Discharge Information Referrals: Leif Medina MD [Primary Care Provider] - Forms: ED Department Discharge Additional Instructions: The following information is given to patients seen in the emergency department who are being discharged to home. This information is to outline your options for follow-up care. We provide all patients seen in our emergency department with a follow-up referral. The need for follow-up, as well as the timing and circumstances, are variable depending upon the specifics of your emergency department visit. If you don't have a primary care physician on staff, we will provide you with a referral. We always advise you to contact your personal physician following an emergency department visit to inform them of the circumstance of the visit and for follow-up with them and/or the need for any referrals to a consulting specialist. The emergency department will also refer you to a specialist when appropriate. This referral assures that you have the opportunity for follow-up care with a specialist. All of these measure are taken in an effort to provide you with optimal care, which includes your follow-up. Under all circumstances we always encourage you to contact your private physician who remains a resource for coordinating your care. When calling for follow-up care, please make the office aware that this follow-up is from your recent emergency room visit. If for any reason you are refused follow-up, please contact the [facility] Emergency Department at and asked to speak to the emergency department charge nurse. [facility] [address] [place] [address] [place] [address] Take medications as instructed Follow up with primary care provider Return to ED as needed as discussed Sepsis Event Note - Evaluation Sepsis Screening Result: No Definite Risk - Focused Exam Vital Signs: Vital Signs Temp Pulse Resp BP Pulse Ox 12/04/19 14:22 98.0 F 75 17 187/100 H 99 Date Exam was Performed: 12/04/19 Time Exam was Performed: 16:08 - My Orders Last 24 Hours: My Active Orders 12/04/19 15:06 Chest 2V [CR] Stat - Assessment/Plan Last 24 Hours: My Active Orders 12/04/19 15:06 Chest 2V [CR] Stat
--- NOTE | 2019-12-04 16:28 | CR ---
Chest: 2 views of the chest were obtained. Comparison: Prior chest x-ray of 08/25/19. Heart size at the upper limits of normal. Upper mediastinum is normal. Lungs are clear. Slight degenerative change is noted within the spine. Impression: 1. Heart size at the upper limits of normal. 2. Nothing acute is appreciated on 2 view chest x-ray. Diagnostic code #2 Study was dictated in [place] Standard Time
== END 2019-12-04 17:06 | disposition home or self-care (01) ==
LOC: MW.ED 14:13
DX: J20.9 Acute bronchitis, unspecified (principal); I10 Essential (primary) hypertension; Z88.5 Allergy status to narcotic agent; Z79.899 Other long term (current) drug therapy
CPT/HCPCS: 71046; 71046-26; 87804; 99283; 99283-25

== ENCOUNTER 2020-05-02 11:08 | Emergency (ER) | payer BC ==
[2020-05-02] MEDS ORDERED: Ondansetron 4 MG/2 ML SDV IVPUSH ONE (11:31)
[2020-05-02] MEDS ORDERED: Sodium Chloride 0.9% 10 ML Syringe FLUSH PRN (11:31)
[2020-05-02] MEDS ORDERED: Sodium Chloride 0.9% 1,000 ML IV ONE (11:31)
[2020-05-02] MEDS ORDERED: Sodium Chloride 0.9% 2.5 ML Syringe FLUSH PRN ×2 (11:31)
--- NOTE | 2020-05-02 11:36 | EDM.PDOC ---
ED HPI GENERAL MEDICAL PROBLEM - General Chief Complaint: Abdominal Pain Stated Complaint: DIZZY AND SICK TO STOMACH Time Seen by Provider: 05/02/20 11:18 - History of Present Illness INITIAL COMMENTS - FREE TEXT/NARRATIVE: History of present illness: Patient presents with diarrhea and lightheadedness. Diarrhea began this morning she denies any foreign travel no fever no chills no abdominal pain no cramping she has nausea no vomiting. All began this morning she has had several episodes of loose stool no blood or black stools are noted. She has hypertension no other medical problems nothing seems to make it better or worse Review of systems: As per history of present illness and below otherwise all systems reviewed and negative. Past medical history: As per history of present illness and as reviewed below otherwise noncontributory. Surgical history: As per history of present illness and as reviewed below otherwise noncontributory. Social history: No reported history of drug or alcohol abuse. Family history: As per history of present illness and as reviewed below otherwise noncontributory. Physical exam: HEENT: Atraumatic, normocephalic, pupils reactive, negative for conjunctival pallor or scleral icterus, mucous membranes moist, throat clear, neck supple, nontender, trachea midline. Lungs: Clear to auscultation, breath sounds equal bilaterally, chest nontender. Heart: S1S2, regular, negative for clicks, rubs, or JVD. Abdomen: Soft, nondistended, nontender. Negative for masses or hepatosplenomegaly. Negative for costovertebral tenderness. Pelvis: Stable nontender. Genitourinary: Deferred. Rectal: Deferred. Extremities: Atraumatic, negative for cords or calf pain. Neurovascular unremarkable. Neuro: Awake, alert, oriented. Cranial nerves II through XII unremarkable. Cerebellum unremarkable. Motor and sensory unremarkable throughout. Exam nonfocal. Diagnostics: [] Therapeutics: [] Impression: Diarrhea, lightheadedness [] Plan: Labs will be sent patient will be given fluid bolus and Zofran and reassessed. [] Definitive disposition and diagnosis as appropriate pending reevaluation and review of above. 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 Neurological History: Reports: None Other Neuro History: Hx Brain tumor Psychiatric History: Reports: Anxiety, Depression, Panic Attack Hematologic History: Reports: None - Infectious Disease History Infectious Disease History: Reports: None - Past Surgical History GI Surgical History: Reports: Appendectomy, Cholecystectomy, Other (See Below) Female Surgical History: Reports: Section Social & Family History - Family History Family Medical History: Noncontributory - Caffeine Use Caffeine Use: Reports: Coffee - Living Situation & Occupation 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 She was checked with a Hemoccult that was negative. She had a liter of saline and is feeling better and the ED she would like to be discharged home. I encouraged her to increase p.o. fluid intake. Last Recorded V/S: Last Vital Signs Temp 35.7 C L 05/02/20 11:26 Pulse 79 05/02/20 11:26 Resp 18 05/02/20 11:26 BP 152/79 H 05/02/20 11:26 Pulse Ox 98 05/02/20 11:26 - Orders/Labs/Meds Orders: Active Orders 24 hr Category Date Time Status Sodium Chloride 0.9% [Normal Saline] 1,000 ml Med 05/02/20 11:31 Active IV BOLUS Sodium Chloride 0.9% [Saline Flush] Med 05/02/20 11:31 Active 10 ml FLUSH ASDIRECTED PRN Sodium Chloride 0.9% [Saline Flush] Med 05/02/20 11:31 Active 2.5 ml FLUSH ASDIRECTED PRN Sodium Chloride 0.9% [Saline Flush] Med 05/02/20 11:31 Active 2.5 ml FLUSH ASDIRECTED PRN Saline Lock Insert [OM.PC] Stat Oth 05/02/20 11:31 Ordered Medication Orders Sodium Chloride (Normal Saline) 1,000 mls @ 999 mls/hr IV BOLUS ONE Stop: 05/02/20 12:31 Last Admin: 05/02/20 11:38 Dose: 999 mls/hr Documented by: IDANIA Sodium Chloride (Saline Flush) 10 ml FLUSH ASDIRECTED PRN PRN Reason: Keep Vein Open Last Admin: 05/02/20 11:38 Dose: 10 ml Documented by: IDANIA Sodium Chloride (Saline Flush) 2.5 ml FLUSH ASDIRECTED PRN PRN Reason: Keep Vein Open Last Admin: 05/02/20 11:38 Dose: 2.5 ml Documented by: [id number] Sodium Chloride (Saline Flush) 2.5 ml FLUSH ASDIRECTED PRN PRN Reason: Keep Vein Open Last Admin: 05/02/20 11:38 Dose: 2.5 ml Documented by: [id number] Labs: Laboratory Tests 05/02/20 05/02/20 05/02/20 Range/Units 11:20 11:20 11:20 WBC 10.16 (4.0-11.0) K/uL RBC 4.64 (4.30-5.90) M/uL Hgb 10.2 L (12.0-16.0) g/dL Hct 35.4 L (36.0-46.0) % MCV 76.3 L (80.0-98.0) fL MCH 22.0 L (27.0-32.0) pg MCHC 28.8 L (31.0-37.0) g/dL RDW Std Deviation 47.0 (28.0-62.0) fl RDW Coeff of Jania 17 H (11.0-15.0) % Plt Count 521 H (150-400) K/uL MPV 8.80 (7.40-12.00) fL Neut % (Auto) 61.0 (48.0-80.0) % Lymph % (Auto) 24.3 (16.0-40.0) % Lane % (Auto) 12.1 (0.0-15.0) % Eos % (Auto) 1.9 (0.0-7.0) % Baso % (Auto) 0.7 (0.0-1.5) % Neut # (Auto) 6.2 H (1.4-5.7) K/uL Lymph # (Auto) 2.5 H (0.6-2.4) K/uL Lane # (Auto) 1.2 H (0.0-0.8) K/uL Eos # (Auto) 0.2 (0.0-0.7) K/uL Baso # (Auto) 0.1 (0.0-0.1) K/uL Nucleated RBC % 0.0 /100WBC Nucleated RBCs # 0 K/uL Sodium 139 (136-145) mmol/L Potassium 4.0 (3.5-5.1) mmol/L Chloride 102 (98-107) mmol/L Carbon Dioxide 26.0 (21.0-32.0) mmol/L BUN 19 H (7.0-18.0) mg/dL Creatinine 1.2 H (0.6-1.0) mg/dL Est Cr Clr Drug Dosing 51.12 mL/min Estimated GFR (MDRD) 48.6 ml/min Glucose 141 H (74-106) mg/dL Calcium 8.3 L (8.5-10.1) mg/dL Total Bilirubin 0.2 (0.2-1.0) mg/dL AST 28 (15-37) IU/L ALT 24 (14-63) IU/L Alkaline Phosphatase 64 (46-116) U/L Total Protein 7.4 (6.4-8.2) g/dL Albumin 3.6 (3.4-5.0) g/dL Globulin 3.8 (2.6-4.0) g/dL Albumin/Globulin Ratio 0.9 (0.9-1.6) Lipase 132 (73-393) U/L Urine Color YELLOW Urine Appearance HAZY Urine pH 5.5 (5.0-8.0) Ur Specific Thida >= 1.030 (1.001-1.035) Urine Protein NEGATIVE (NEGATIVE) mg/dL Urine Glucose (UA) NEGATIVE (NEGATIVE) mg/dL Urine Ketones NEGATIVE (NEGATIVE) mg/dL Urine Occult Blood NEGATIVE (NEGATIVE) Urine Nitrite NEGATIVE (NEGATIVE) Urine Bilirubin NEGATIVE (NEGATIVE) Urine Urobilinogen 0.2 (<2.0) EU/dL Ur Leukocyte Esterase NEGATIVE (NEGATIVE) Urine RBC 0-2 (0-2/HPF) Urine WBC 1-3 (0-5/HPF) Ur Epithelial Cells MODERATE (NONE-FEW) Urine Bacteria 1+ H (NEGATIVE) Urine Mucus LIGHT (NONE-MOD) Urine HCG, Qual (NEGATIVE) 05/02/20 Range/Units 11:20 WBC (4.0-11.0) K/uL RBC (4.30-5.90) M/uL Hgb (12.0-16.0) g/dL Hct (36.0-46.0) % MCV (80.0-98.0) fL MCH (27.0-32.0) pg MCHC (31.0-37.0) g/dL RDW Std Deviation (28.0-62.0) fl RDW Coeff of Jania (11.0-15.0) % Plt Count (150-400) K/uL MPV (7.40-12.00) fL Neut % (Auto) (48.0-80.0) % Lymph % (Auto) (16.0-40.0) % Lane % (Auto) (0.0-15.0) % Eos % (Auto) (0.0-7.0) % Baso % (Auto) (0.0-1.5) % Neut # (Auto) (1.4-5.7) K/uL Lymph # (Auto) (0.6-2.4) K/uL Lane # (Auto) (0.0-0.8) K/uL Eos # (Auto) (0.0-0.7) K/uL Baso # (Auto) (0.0-0.1) K/uL Nucleated RBC % /100WBC Nucleated RBCs # K/uL Sodium (136-145) mmol/L Potassium (3.5-5.1) mmol/L Chloride (98-107) mmol/L Carbon Dioxide (21.0-32.0) mmol/L BUN (7.0-18.0) mg/dL Creatinine (0.6-1.0) mg/dL Est Cr Clr Drug Dosing mL/min Estimated GFR (MDRD) ml/min Glucose (74-106) mg/dL Calcium (8.5-10.1) mg/dL Total Bilirubin (0.2-1.0) mg/dL AST (15-37) IU/L ALT (14-63) IU/L Alkaline Phosphatase (46-116) U/L Total Protein (6.4-8.2) g/dL Albumin (3.4-5.0) g/dL Globulin (2.6-4.0) g/dL Albumin/Globulin Ratio (0.9-1.6) Lipase (73-393) U/L Urine Color Urine Appearance Urine pH (5.0-8.0) Ur Specific Thida (1.001-1.035) Urine Protein (NEGATIVE) mg/dL Urine Glucose (UA) (NEGATIVE) mg/dL Urine Ketones (NEGATIVE) mg/dL Urine Occult Blood (NEGATIVE) Urine Nitrite (NEGATIVE) Urine Bilirubin (NEGATIVE) Urine Urobilinogen (<2.0) EU/dL Ur Leukocyte Esterase (NEGATIVE) Urine RBC (0-2/HPF) Urine WBC (0-5/HPF) Ur Epithelial Cells (NONE-FEW) Urine Bacteria (NEGATIVE) Urine Mucus (NONE-MOD) Urine HCG, Qual NEGATIVE (NEGATIVE) Meds: Medications Generic Name Dose Route Start Last Admin Trade Name Freq PRN Reason Stop Dose Admin Sodium Chloride 1,000 mls @ 999 mls/hr 05/02/20 11:31 05/02/20 11:38 Normal Saline IV 05/02/20 12:31 999 mls/hr BOLUS ONE Administration Sodium Chloride 10 ml 05/02/20 11:31 05/02/20 11:38 Saline Flush FLUSH 10 ml ASDIRECTED PRN Administration Keep Vein Open Sodium Chloride 2.5 ml 05/02/20 11:31 05/02/20 11:38 Saline Flush FLUSH 2.5 ml ASDIRECTED PRN Administration Keep Vein Open Sodium Chloride 2.5 ml 05/02/20 11:31 05/02/20 11:38 Saline Flush FLUSH 2.5 ml ASDIRECTED PRN Administration Keep Vein Open Discontinued Medications Generic Name Dose Route Start Last Admin Trade Name Freq PRN Reason Stop Dose Admin Ondansetron HCl 4 mg 05/02/20 11:31 05/02/20 11:38 Zofran IVPUSH 05/02/20 11:32 4 mg ONETIME ONE Administration Departure - Departure Time of Disposition: 12:25 Disposition: Home, Self-Care 01 Condition: Good Clinical Impression: Diarrhea Qualifiers: Diarrhea type: unspecified type Qualified Code(s): R19.7 - Diarrhea, unspecified - Discharge Information *PRESCRIPTION DRUG MONITORING PROGRAM REVIEWED*: Not Applicable *COPY OF PRESCRIPTION DRUG MONITORING REPORT IN PATIENT CAROL: Not Applicable Instructions: Diarrhea, Adult, [id number] Referrals: Leif Medina MD [Primary Care Provider] - Forms: ED Department Discharge Additional Instructions: The following information is given to patients seen in the emergency department who are being discharged to home. This information is to outline your options for follow-up care. We provide all patients seen in our emergency department with a follow-up referral. The need for follow-up, as well as the timing and circumstances, are variable d epending upon the specifics of your emergency department visit. If you don't have a primary care physician on staff, we will provide you with a referral. We always advise you to contact your personal physician following an emergency department visit to inform them of the circumstance of the visit and for follow-up with them and/or the need for any referrals to a consulting specialist. The emergency department will also refer you to a specialist when appropriate. This referral assures that you have the opportunity for follow-up care with a specialist. All of these measure are taken in an effort to provide you with optimal care, which includes your follow-up. Under all circumstances we always encourage you to contact your private physician who remains a resource for coordinating your care. When calling for follow-up care, please make the office aware that this follow-up is from your recent emergency room visit. If for any reason you are refused follow-up, please contact the [facility] Emergency Department at and asked to speak to the emergency department charge nurse. [facility] [address] [place] [id number] [facility] [address] [place] [id number] Sepsis Event Note (ED) - Evaluation Sepsis Screening Result: No Definite Risk - Focused Exam Vital Signs: Vital Signs Temp Pulse Resp BP Pulse Ox 06/26/20 11:26 35.7 C L 79 18 152/79 H 98 - My Orders Last 24 Hours: My Active Orders 05/02/20 11:31 Sodium Chloride 0.9% [Normal Saline] 1,000 ml IV BOLUS Sodium Chloride 0.9% [Saline Flush] 10 ml FLUSH ASDIRECTED PRN Sodium Chloride 0.9% [Saline Flush] 2.5 ml FLUSH ASDIRECTED PRN Sodium Chloride 0.9% [Saline Flush] 2.5 ml FLUSH ASDIRECTED PRN Saline Lock Insert [OM.PC] Stat - Assessment/Plan Last 24 Hours: My Active Orders 05/02/20 11:31 Sodium Chloride 0.9% [Normal Saline] 1,000 ml IV BOLUS Sodium Chloride 0.9% [Saline Flush] 10 ml FLUSH ASDIRECTED PRN Sodium Chloride 0.9% [Saline Flush] 2.5 ml FLUSH ASDIRECTED PRN Sodium Chloride 0.9% [Saline Flush] 2.5 ml FLUSH ASDIRECTED PRN Saline Lock Insert [OM.PC] Stat
== END 2020-05-02 12:30 | disposition home or self-care (01) ==
LOC: MW.ED 11:08
DX: R19.7 Diarrhea, unspecified (principal); R42 Dizziness and giddiness; I10 Essential (primary) hypertension; D64.9 Anemia, unspecified; Z88.5 Allergy status to narcotic agent; Z79.899 Other long term (current) drug therapy
CPT/HCPCS: 36415; 80053; 81001; 81025; 83690; 85025; 96361; 96374; 99284; J2405; J7030; 99282

== ENCOUNTER 2020-05-13 08:04 | Emergency (ER) | payer BC ==
[2020-05-13] MEDS ORDERED: Sodium Chloride 0.9% 10 ML Syringe FLUSH PRN (08:35)
[2020-05-13] MEDS ORDERED: Ketorolac 15 MG/ML SDV IVPUSH ONE (08:35)
[2020-05-13] MEDS ORDERED: Sodium Chloride 0.9% 2.5 ML Syringe FLUSH PRN (08:35)
[2020-05-13] MEDS ORDERED: Ondansetron 4 MG/2 ML SDV IVPUSH ONE (08:35)
--- NOTE | 2020-05-13 08:49 | EDM.PDOC ---
ED HPI GENERAL MEDICAL PROBLEM - General Chief Complaint: Skin Complaint Stated Complaint: PAIN IN NECK Time Seen by Provider: 05/13/20 08:17 - History of Present Illness INITIAL COMMENTS - FREE TEXT/NARRATIVE: History of present illness: [Patient presents with a swollen mass on her right posterior scalp and neck. Patient states she has had these before she lanced one on the opposite side recently she has been having neck pain dizziness headache and trouble with her vision because of it she denies any weakness on one side or the other. Does state there is pain radiating down her right arm and she has tingling in her right hand. She went to her primary care doctor who said she needed to come over here for a CT scan and now she is here to get her CT scan. Appears to be an abscess on the scalp with surrounding cellulitis signs are stable there is no fever. She denies any fever at home no vomiting or chills nothing seems to make it better or worse she says she is in severe pain.] Review of systems: As per history of present illness and below otherwise all systems reviewed and negative. Past medical history: As per history of present illness and as reviewed below otherwise noncontributory. Surgical history: As per history of present illness and as reviewed below otherwise noncontributory. Social history: No reported history of drug or alcohol abuse. Family history: As per history of present illness and as reviewed below otherwise noncontributory. Physical exam: HEENT: Atraumatic, normocephalic, pupils reactive, negative for conjunctival pallor or scleral icterus, mucous membranes moist, throat clear, neck supple, nontender, trachea midline. There is an abscess to the scalp at the base of the scalp posteriorly on the right side at the junction of this of the neck. Surrounding cellulitis this is tender there is also anterior and posterior cervical adenopathy inferior to this area that is also tender. Lungs: Clear to auscultation, breath sounds equal bilaterally, chest nontender. Heart: S1S2, regular, negative for clicks, rubs, or JVD. Abdomen: Soft, nondistended, nontender. Negative for masses or hepatosplenomegaly. Negative for costovertebral tenderness. Pelvis: Stable nontender. Genitourinary: Deferred. Rectal: Deferred. Extremities: Atraumatic, negative for cords or calf pain. Neurovascular unremarkable. Neuro: Awake, alert, oriented. Cranial nerves II through XII unremarkable. Cerebellum unremarkable. Motor and sensory unremarkable throughout. Exam nonfocal. Her extraocular muscles are totally intact she is tracking there is no evidence of pronator drift she has no cranial nerve abnormalities. All 4 extremities have equal strength 5 out of 5. Normal neurological exam in every regard Diagnostics: [] Therapeutics: [] Impression: [] Plan: Patient is anchored on receiving a CT scan based on what her primary care doctor told her. I will obtain labs and do a CT head neck with contrast to rule out a tracking abscess. [] Definitive disposition and diagnosis as appropriate pending reevaluation and review of above. Right neck Pain Score (Numeric/FACES): 10 - Related Data Allergies Allergy/AdvReac Type Severity Reaction Status Date / Time oxycodone Allergy Swelling Verified 05/13/20 08:15 Home Meds: Home Meds lisinopriL [Prinivil] 10 mg PO DAILY #30 tablet 03/20/19 [Rx] Doxycycline [Vibra-Tabs] 100 mg PO BID #20 tablet 05/13/20 [Rx] Naproxen [Naprosyn] 500 mg PO Q12HR #20 tab 05/13/20 [Rx] Past Medical History HEENT History: Reports: Impaired Vision, Other (See Below) Other HEENT History: wears glasses Cardiovascular History: Reports: Hypertension Respiratory History: Reports: None Gastrointestinal History: Reports: Other (See Below) Other Gastrointestinal History: sarcoidosis of liver, 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 [employer] 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 Neurological History: Reports: None Other Neuro History: Hx Brain tumor Psychiatric History: Reports: Anxiety, Depression, Panic Attack Hematologic History: Reports: None - Infectious Disease History Infectious Disease History: Reports: None - Past Surgical History Other HEENT Surgeries/Procedures: acoustic neruoma GI Surgical History: Reports: Appendectomy, Cholecystectomy, Other (See Below) Other GI Surgeries/Procedures: gastric bypass Female Surgical History: Reports: Section Social & Family History - Family History Family Medical History: Noncontributory - Caffeine Use Caffeine Use: Reports: Coffee - Living Situation & Occupation 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 Patient given vancomycin in the ED. Procedure: The area of the right occipital scalp was prepped sterilely anesthetized with 10 mils of 1% lidocaine incised with an 11 blade probed with a Amber clamp moderate amount of pus was expressed irrigated with normal saline left open not packed. The patient tolerated the procedure well Last Recorded V/S: Last Vital Signs Temp 35.7 C L 05/13/20 08:13 Pulse 79 05/13/20 08:13 Resp 20 05/13/20 08:13 BP 153/99 H 05/13/20 08:13 Pulse Ox 96 05/13/20 08:13 - Orders/Labs/Meds Orders: Active Orders 24 hr Category Date Time Status Sodium Chloride 0.9% [Saline Flush] Med 05/13/20 08:35 Active 10 ml FLUSH ASDIRECTED PRN Sodium Chloride 0.9% [Saline Flush] Med 05/13/20 08:35 Active 2.5 ml FLUSH ASDIRECTED PRN VANCOmycin/Water for INJ (PEG) [VANCOmycin 1.5 GM/300 Med 05/13/20 09:00 Active ML Premix] 1.5 gm Premix Bag 1 bag IV ONETIME Saline Lock Insert [OM.PC] Stat Oth 05/13/20 08:35 Ordered Medication Orders Vancomycin HCl 1.5 gm/ Premix 300 mls @ 150 mls/hr IV ONETIME ONE Stop: 05/13/20 10:59 Last Admin: 05/13/20 08:55 Dose: 150 mls/hr Documented by: BETTY Sodium Chloride (Saline Flush) 10 ml FLUSH ASDIRECTED PRN PRN Reason: Keep Vein Open Last Admin: 05/13/20 08:51 Dose: 10 ml Documented by: BETTY Sodium Chloride (Saline Flush) 2.5 ml FLUSH ASDIRECTED PRN PRN Reason: Keep Vein Open Last Admin: 05/13/20 08:51 Dose: 2.5 ml Documented by: BETTY Labs: Laboratory Tests 05/13/20 05/13/20 05/13/20 Range/Units 08:17 08:17 08:19 WBC 15.18 H (4.0-11.0) K/uL RBC 4.68 (4.30-5.90) M/uL Hgb 10.1 L (12.0-16.0) g/dL Hct 35.6 L (36.0-46.0) % MCV 76.1 L (80.0-98.0) fL MCH 21.6 L (27.0-32.0) pg MCHC 28.4 L (31.0-37.0) g/dL RDW Std Deviation 46.9 (28.0-62.0) fl RDW Coeff of Jania 17 H (11.0-15.0) % Plt Count 557 H (150-400) K/uL MPV 9.60 (7.40-12.00) fL Neut % (Auto) 69.1 (48.0-80.0) % Lymph % (Auto) 12.9 L (16.0-40.0) % [place] % (Auto) 16.9 H (0.0-15.0) % Eos % (Auto) 0.8 (0.0-7.0) % Baso % (Auto) 0.3 (0.0-1.5) % Neut # (Auto) 10.5 H (1.4-5.7) K/uL Lymph # (Auto) 2.0 (0.6-2.4) K/uL [place] # (Auto) 2.6 H (0.0-0.8) K/uL Eos # (Auto) 0.1 (0.0-0.7) K/uL Baso # (Auto) 0.0 (0.0-0.1) K/uL Nucleated RBC % 0.0 /100WBC Nucleated RBCs # 0 K/uL Sodium 139 (136-145) mmol/L Potassium 3.9 (3.5-5.1) mmol/L Chloride 103 (98-107) mmol/L Carbon Dioxide 27.5 (21.0-32.0) mmol/L BUN 12 (7.0-18.0) mg/dL Creatinine 1.1 H (0.6-1.0) mg/dL Est Cr Clr Drug Dosing 55.77 mL/min Estimated GFR (MDRD) 53.7 ml/min Glucose 96 (74-106) mg/dL Calcium 9.0 (8.5-10.1) mg/dL Total Bilirubin 0.2 (0.2-1.0) mg/dL AST 23 (15-37) IU/L ALT 21 (14-63) IU/L Alkaline Phosphatase 76 (46-116) U/L Total Protein 7.7 (6.4-8.2) g/dL Albumin 3.6 (3.4-5.0) g/dL Globulin 4.1 H (2.6-4.0) g/dL Albumin/Globulin Ratio 0.9 (0.9-1.6) Urine HCG, Qual NEGATIVE (NEGATIVE) Meds: Medications Generic Name Dose Route Start Last Admin Trade Name Freq PRN Reason Stop Dose Admin Vancomycin HCl 1.5 gm/ Premix 300 mls @ 150 mls/hr 05/13/20 09:00 05/13/20 08:55 IV 05/13/20 10:59 150 mls/hr ONETIME ONE Administration Sodium Chloride 10 ml 05/13/20 08:35 05/13/20 08:51 Saline Flush FLUSH 10 ml ASDIRECTED PRN Administration Keep Vein Open Sodium Chloride 2.5 ml 05/13/20 08:35 05/13/20 08:51 Saline Flush FLUSH 2.5 ml ASDIRECTED PRN Administration Keep Vein Open Discontinued Medications Generic Name Dose Route Start Last Admin Trade Name Freq PRN Reason Stop Dose Admin Vancomycin HCl 1,500 mg/ 100 mls @ 100 mls/hr 05/13/20 08:35 05/13/20 08:52 Sodium Chloride IV 05/13/20 09:34 Not Given ONETIME ONE Iopamidol 100 ml 05/13/20 09:52 05/13/20 09:53 Isovue Multipack-370 (76%) IVPUSH 05/13/20 09:53 100 ml ONETIME STA Administration Ketorolac Tromethamine 30 mg 05/13/20 08:35 05/13/20 08:51 Toradol IVPUSH 05/13/20 08:36 30 mg ONETIME ONE Administration Lidocaine HCl 10 ml 05/13/20 09:44 Xylocaine-Mpf 1% INJECT 05/13/20 09:45 ONETIME ONE Ondansetron HCl 4 mg 05/13/20 08:35 05/13/20 08:51 Zofran IVPUSH 05/13/20 08:36 4 mg ONETIME ONE Administration Departure - Departure Time of Disposition: 10:22 Disposition: Home, Self-Care 01 Condition: Good Clinical Impression: Abscess - Discharge Information *PRESCRIPTION DRUG MONITORING PROGRAM REVIEWED*: Not Applicable *COPY OF PRESCRIPTION DRUG MONITORING REPORT IN PATIENT CAROL: Not Applicable Instructions: Skin Abscess Referrals: Leif Medina MD [Primary Care Provider] - Forms: ED Department Discharge Additional Instructions: The following information is given to patients seen in the emergency department who are being discharged to home. This information is to outline your options for follow-up care. We provide all patients seen in our emergency department with a follow-up referral. The need for follow-up, as well as the timing and circumstances, are variable depending upon the specifics of your emergency department visit. If you don't have a primary care physician on staff, we will provide you with a referral. We always advise you to contact your personal physician following an emergency department visit to inform them of the circumstance of the visit and for follow-up with them and/or the need for any referrals to a consulting specialist. The emergency department will also refer you to a specialist when appropriate. This referral assures that you have the opportunity for follow-up care with a specialist. All of these measure are taken in an effort to provide you with optimal care, which includes your follow-up. Under all circumstances we always encourage you to contact your private physician who remains a resource for coordinating your care. When calling for fo llow-up care, please make the office aware that this follow-up is from your recent emergency room visit. If for any reason you are refused follow-up, please contact the [facility] Emergency Department at and asked to speak to the emergency department charge nurse. Sepsis Event Note (ED) - Evaluation Sepsis Screening Result: No Definite Risk - Focused Exam Vital Signs: Vital Signs Temp Pulse Resp BP Pulse Ox 05/13/20 08:13 35.7 C L 79 20 153/99 H 96 - My Orders Last 24 Hours: My Active Orders 05/13/20 08:35 Sodium Chloride 0.9% [Saline Flush] 10 ml FLUSH ASDIRECTED PRN Sodium Chloride 0.9% [Saline Flush] 2.5 ml FLUSH ASDIRECTED PRN Saline Lock Insert [OM.PC] Stat 05/13/20 09:00 VANCOmycin/Water for INJ (PEG) [VANCOmycin 1.5 GM/300 ML Premix] 1.5 gm Premix Bag 1 bag IV ONETIME - Assessment/Plan Last 24 Hours: My Active Orders 05/13/20 08:35 Sodium Chloride 0.9% [Saline Flush] 10 ml FLUSH ASDIRECTED PRN Sodium Chloride 0.9% [Saline Flush] 2.5 ml FLUSH ASDIRECTED PRN Saline Lock Insert [OM.PC] Stat 05/13/20 09:00 VANCOmycin/Water for INJ (PEG) [VANCOmycin 1.5 GM/300 ML Premix] 1.5 gm Premix Bag 1 bag IV ONETIME
[2020-05-13 09:06] LABS: CARBON DIOXIDE,CO2 27.5 mmol/L (21.0-32.0); POTASSIUM,K 3.9 mmol/L (3.5-5.1)
[2020-05-13] MEDS ORDERED: Iopamidol 755 MG/ML 500 ML Multipack Bottle IVPUSH STA (09:52)
--- NOTE | 2020-05-13 10:04 | CT ---
Head CT Technique: Multiple axial sections through the brain were obtained. Study was obtained without and with intravenous contrast. Comparison: No prior intracranial imaging is available. Findings: Ventricles along with basal cisterns and sulci over the convexities are within normal limits for the patient's age. Increased density again seen within the subcutaneous fat within the upper posterior right neck. No abnormal parenchymal densities are seen. No evidence of intracranial hemorrhage. No midline shift or mass-effect is seen. No abnormal enhancement is appreciated. Bone window settings were reviewed. Visualized paranasal sinuses and visualized mastoid sinuses show nothing acute. No acute calvarial finding is seen. Impression: 1. Density within the subcutaneous fat within the upper posterior right neck as described on neck CT. 2. No acute intracranial abnormality is seen. Diagnostic code #2 This report was dictated in MDT
--- NOTE | 2020-05-13 10:05 | CT ---
CT neck Technique: Multiple axial sections were obtained from above the external auditory canals inferiorly to the lung apices. Intravenous contrast was utilized. Findings: Soft-tissue abnormality is seen within the subcutaneous fat within the posterior right upper neck. This appears to cause some haziness within the adjacent posterior neck muscles. This finding measures approximately 2.8 cm in size. Minimal density is seen to the left of midline at the same level as above lesion within the subcutaneous fat. Submandibular salivary glands and parotid salivary glands appear normal. Visualized lung apices show nothing acute. Thyroid gland appears normal in appearance. Small scattered lymph nodes are seen without lymphadenopathy. Visualized paranasal sinuses show nothing acute. Bone window settings shows disc space narrowing at C5-6 and C6-7. Posterior osteophytes are noted at C6-7. Anterior osteophytes are seen most prominent at C6-7. Prevertebral soft tissues are normal. Epiglottis is normal. Impression: 1. Subcutaneous abnormalities within the upper neck as noted above. Please correlate if patient has any symptoms to suggest cellulitis as an etiology for these findings. This could also represent a change from previous trauma if patient has such a history. 2. No additional abnormality is appreciated on CT study of the neck. Diagnostic code #3 This report was dictated in MDT
== END 2020-05-13 11:15 | disposition home or self-care (01) ==
LOC: MW.ED 08:04
DX: L02.811 Cutaneous abscess of head [any part, except face] (principal); I10 Essential (primary) hypertension; Z88.5 Allergy status to narcotic agent; Z79.899 Other long term (current) drug therapy
CPT/HCPCS: 10060; 70470; 70491; 80053; 81025; 85025; 96374; 96375; 99284; J1885; J2001; J2405; J3370; Q9967; 99283